=== PATIENT | male | born 1990 | race Two or more races ===

== ENCOUNTER 2017-09-10 22:04 | Emergency (ER) | payer OTHER ==
[2017-09-10 22:14] VITALS: BMI 30.5
[2017-09-10] MEDS ORDERED: TETANUS AND DIPHTHERIA TOXOID 0.5 ML DISP.SYRIN IM ONE (23:18)
--- NOTE | 2017-09-10 23:18 | PDOC ---
History of Present Illness - General History Source: Patient <Carter Del Valle - Last Filed: 09/10/17 23:18> - General History Source: Patient Exam Limitations: No Limitations - History of Present Illness Initial Comments: 09/10/17 23:24 The patient is a 26 year old male, with no significant past medical history who presents to the emergency department with 2 scratches to R side of neck. 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 Patient is requesting tetanus shot. Patient denies any other injuries or trauma. <FelipeShauna - Last Filed: 09/10/17 23:25> - General Chief Complaint: Injury Stated Complaint: INJURY Time Seen by Provider: 09/10/17 23:09 Past History - Surgical History Abdominal Surgery: No Appendectomy: No Cardiac Surgery: No Cholecystectomy: No Gastric Stapling: No GI Surgery: No Lung Surgery: No Neurologic Surgery: No Orthopedic Surgery: No - Suicide/Smoking/Psychosocial Hx Smoking History: Never smoked Have you smoked in the past 12 months: No Hx Alcohol Use: No Drug/Substance Use Hx: No Substance Use Type: None <Carter Del Valle - Last Filed: 09/10/17 23:18> <Shauna Wang - Last Filed: 09/10/17 23:25> - Past Medical History Allergies/Adverse Reactions: Allergies Allergy/AdvReac Type Severity Reaction Status Date / Time No Known Allergies Allergy Verified 09/10/17 22:11 Home Medications: Ambulatory Orders Meloxicam [Mobic] 15 mg PO DAILY #14 tablet 09/05/15 Naproxen [Naprosyn -] 500 mg PO BID PRN #14 tablet 10/25/15 Review of Systems - Review of Systems Able to Perform ROS?: Yes Comments:: 09/10/17 23:24 CONSTITUTIONAL: Absent: fever, no chills, no fatigue EYES: Absent: visual changes ENT: Absent: ear pain, no sore throat CARDIOVASCULAR: Absent: chest pain, no palpitations RESPIRATORY: Absent: cough, no SOB GI: Absent: abdominal pain, no nausea, no vomiting, no constipation, no diarrhea GENITOURINARY: Absent: dysuria, no frequency, no hematuria MUSCULOSKELETAL: Absent: back pain, no arthralgia, no myalgia SKIN: + Scratch to R side of neck Absent: rash <Shauna Wang - Last Filed: 09/10/17 23:25> *Physical Exam - Vital Signs Last Vital Signs Temp Pulse Resp BP Pulse Ox 98.7 F 85 18 126/63 98 09/10/17 22:11 09/10/17 22:11 09/10/17 22:11 09/10/17 22:11 09/10/17 22:11 <Carter Del Valle - Last Filed: 09/10/17 23:18> - Vital Signs Last Vital Signs Temp Pulse Resp BP Pulse Ox 98.7 F 85 18 126/63 98 09/10/17 22:11 09/10/17 22:11 09/10/17 22:11 09/10/17 22:11 09/10/17 22:11 - Physical Exam Comments: 09/10/17 23:25 GENERAL: Well-appearing, well-nourished. No apparent distress. HEENT: Normocephalic, atraumatic. PERRL, EOM intact. CARDIOVASCULAR: Normal S1, S2. Regular rate and rhythm. PULMONARY: Clear to auscultation bilaterally. ABDOMEN: Soft, non-distended, non-tender. EXTREMITIES: Normal ROM in all four extremities. No gross deformities. SKIN: +2 superficial abrasions to R side of neck. Warm, dry. No rash NEUROLOGICAL: No focal neurological deficits. <Shauna Wang - Last Filed: 09/10/17 23:25> Medical Decision Making - Medical Decision Making 09/10/17 23:19 Dr. Del Valle: The scribe's documentation has been prepared under my direction and personally reviewed by me in its entirery. I confirm that the note above accurately reflects all work, treatment, procedures, and medical decision making performed by me. <Carter Del Valle - Last Filed: 09/10/17 23:18> *DC/Admit/Observation/Transfer - Discharge Dispostion Admit: No <Carter Del Valle - Last Filed: 09/10/17 23:18> - Attestations Scribe Attestion: 09/10/17 23:25 Documentation prepared by Shauna Wang, acting as biomedical instrument technician for Carter Del Valle MD <Shauna Wang - Last Filed: 09/10/17 23:25> Diagnosis at time of Disposition: Abrasion - Discharge Dispostion Disposition: HOME - Patient Instructions Printed Discharge Instructions: DI for Abrasion Additional Instructions: Keep area clean and dry. Wash with soap and water.
[2017-09-10 23:52] VITALS: BP 115/74; PULSE 73; TEMP 98.3
== END 2017-09-10 23:45 | disposition home or self-care (01) ==
LOC: JER 22:04
PROC: 3E0234Z Introduction of Serum, Toxoid and Vaccine into Muscle, Percutaneous Approach (ICD-10-PCS; principal; 2017-09-10)
DX: S10.91XA Abrasion of unspecified part of neck, initial encounter (principal); X58.XXXA Exposure to other specified factors, initial encounter; Y93.89 Activity, other specified; Y92.89 Other specified places as the place of occurrence of the external cause; Y99.0 Civilian activity done for income or pay
CPT/HCPCS: 99281-25

== ENCOUNTER 2017-11-25 20:12 | Emergency (ER) | payer OTHER ==
--- NOTE | 2017-11-25 20:24 | PDOC ---
Rapid Medical Evaluation Time Seen by Provider: 11/25/17 20:22 Medical Evaluation: Allergies Allergy/AdvReac Type Severity Reaction Status Date / Time No Known Allergies Allergy Verified 11/25/17 20:22 11/25/17 20:23 Pt presents to the ED: turned his head to the right and struck the wall Pt on brief exam: small hematoma to rt upper cheek and rt forehead, mild contusion to right knee, ambulatory Pt ordered for: none Pt to proceed to the ED Discharge Disposition - Diagnosis Contusion - Referrals - Patient Instructions - Post Discharge Activity
[2017-11-25 20:28] VITALS: BP 108/73; PULSE 103; TEMP 98.1; BMI 30.8
[2017-11-25] MEDS ORDERED: ACETAMINOPHEN 500 MG TABLET (FP) PO ONE (21:31)
--- NOTE | 2017-11-25 21:31 | PDOC ---
History of Present Illness - General Chief Complaint: Injury Stated Complaint: INJURY Time Seen by Provider: 11/25/17 20:22 History Source: Patient - History of Present Illness Initial Comments: 11/25/17 21:45 27-year-old male with no medical history presents to the emergency department complaining of a soreness to his right cheek and right knee. 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 Patient denies headache, dizziness, lightheadedness, neck pain, jaw pain, back pains, chest pain, abdominal pains, extremity numbness or tingling sensation. Occurred: reports: just prior to arrival Past History - Past Medical History Allergies/Adverse Reactions: Allergies Allergy/AdvReac Type Severity Reaction Status Date / Time No Known Allergies Allergy Verified 11/25/17 20:22 Home Medications: Ambulatory Orders NK [No Known Home Medication] 11/25/17 - Surgical History Abdominal Surgery: No Appendectomy: No Cardiac Surgery: No Cholecystectomy: No Gastric Stapling: No GI Surgery: No Lung Surgery: No Neurologic Surgery: No Orthopedic Surgery: No - Suicide/Smoking/Psychosocial Hx Smoking History: Never smoked Have you smoked in the past 12 months: No Hx Alcohol Use: No Drug/Substance Use Hx: No Substance Use Type: None Trauma Specific PMHX - Complaint Specific PMHX Arthritis: No Back Injury: No (history of low back pain herniated discs, unknown injury) Neck Injury: No Hx Sacro Iliac Joint Dysfunction: No Review of Systems - Review of Systems Able to Perform ROS?: Yes Comments:: 11/25/17 21:41 CONSTITUTIONAL: Absent: fever, chills, diaphoresis, generalized weakness, malaise, loss of appetite HEENT: Right maxillar ; slight pain Absent: rhinorrhea, nasal congestion, throat pain, throat swelling, difficulty swallowing, mouth swelling, ear pain, eye pain, visual Changes CARDIOVASCULAR: Absent: chest pain, loss of consciousness, palpitations, irregular heart rate, peripheral edema RESPIRATORY: Absent: cough, shortness of breath, dyspnea with exertion, orthopnea, wheezing, stridor, hemoptysis GASTROINTESTINAL: Absent: abdominal pain, abdominal distension, nausea, vomiting, diarrhea, constipation, melena, hematochezia GENITOURINARY: Absent: dysuria, frequency, urgency, hesitancy, hematuria, flank pain, genital pain MUSCULOSKELETAL: +Right knee pain Absent: myalgia, arthralgia, joint swelling SKIN: Absent: rash, itching, pallor HEMATOLOGIC/IMMUNOLOGIC: Absent: easy bleeding, easy bruising, lymphadenopathy, frequent infections ENDOCRINE: Absent: unexplained weight gain, unexplained weight loss, heat intolerance, cold intolerance NEUROLOGIC: Absent: headache, focal weakness or paresthesias, dizziness, unsteady gait, seizure, mental status changes, bladder or bowel incontinence Is the patient limited Welsh proficient: No *Physical Exam - Vital Signs Last Vital Signs Temp Pulse Resp BP Pulse Ox 98.1 F 103 H 18 108/73 96 11/25/17 20:23 11/25/17 20:23 11/25/17 20:23 11/25/17 20:23 11/25/17 20:23 - Physical Exam Comments: 11/25/17 21:41 GENERAL: Well developed, well nourished. Awake and alert. No acute distress. HEENT: Patient able to open his mouth wide without any difficulties. Normocephalic, atraumatic. PERRLA, EOMI. No conjunctival pallor. Sclera are non- icteric. Moist mucous membranes. Oropharynx is clear. NECK: Supple. Full ROM. No JVD. Carotid pulses 2+ and symmetric, without bruits. No thyromegaly. No lymphadenopathy. CARDIOVASCULAR: Regular rate and rhythm. No murmurs, rubs, or gallops. Distal pulses are 2+ and symmetric. PULMONARY: No evidence of respiratory distress. Lungs clear to auscultation bilaterally. No wheezing, rales or rhonchi. ABDOMINAL: Soft. Non-tender. Non-distended. No rebound or guarding. No organomegaly. Normoactive bowel sounds. MUSCULOSKELETAL +right knee F.R.O.M> superficial abrasion to ant klnee /2cm neg valrus/valgus/ant/posterior drawer neg swelling neg obv deformities RIght ankle 2+dp pulse Neg pain on palp Right hip F.R.O.M. neg pain on palp Normal range of motion at all joints. No bony deformities or tenderness. No CVA tenderness. EXTREMITIES: No cyanosis. No clubbing. No edema. No calf tenderness. SKIN: Warm and dry. Normal capillary refill. No rashes. No jaundice. NEUROLOGICAL: Alert, awake, appropriate. Cranial nerves 2-12 intact. No deficits to light touch and temperature in face, upper extremities and lower extremities. No motor deficits in the in face, upper extremities and lower extremities. Normoreflexic in the upper and lower extremities. Normal speech. Toes are down- going bilaterally. Gait is normal without ataxia. *DC/Admit/Observation/Transfer Diagnosis at time of Disposition: Contusion Qualifiers: Encounter type: initial encounter Contusion area: knee Laterality: right Qualified Code(s): S80.01XA - Contusion of right knee, initial encounter - Discharge Dispostion Disposition: HOME Condition at time of disposition: Stable Admit: No - Referrals Referrals: Chau Valero MD [Staff Physician] - - Patient Instructions Printed Discharge Instructions: DI for Contusion Additional Instructions: Ice; 20 mins on alternating with 20 mins off for 48 hours while awake. \Must ice your right cheek and right knee for the next 48 hours Rest Elevate Follow up with your orthopedic surgeon or the one listed on the discharge form. Return to the ER for severe/persistent/worsening symptoms, extremity numbness/ tingling sensation. - Post Discharge Activity Forms/Work/School Notes: Back to Work
[2017-11-25] MEDS ORDERED: ACETAMINOPHEN 500 MG TABLET (FP) ONE (21:33)
== END 2017-11-25 21:34 | disposition home or self-care (01) ==
LOC: JERFT 20:12
DX: S80.01XA Contusion of right knee, initial encounter (principal); S00.83XA Contusion of other part of head, initial encounter; W01.198A Fall on same level from slipping, tripping and stumbling with subsequent striking against other object, initial encounter; Y93.F9 Activity, other caregiving; Y92.119 Unspecified place in children's home and orphanage as the place of occurrence of the external cause; Y99.0 Civilian activity done for income or pay
CPT/HCPCS: 99281-25

== ENCOUNTER 2018-08-04 14:54 | Emergency (ER) | payer OTHER ==
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
[2018-08-04 15:07] VITALS: BP 118/75; PULSE 71; TEMP 99.2; BMI 30.8
[2018-08-04] MEDS ORDERED: IBUPROFEN 600 MG TABLET (FP) PO ONE ×2 (15:38→15:43)
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
== END 2018-08-04 15:49 | disposition home or self-care (01) ==
LOC: JER 14:54
DX: S13.4XXA Sprain of ligaments of cervical spine, initial encounter (principal); V43.52XA Car driver injured in collision with other type car in traffic accident, initial encounter; Y93.89 Activity, other specified; Y92.410 Unspecified street and highway as the place of occurrence of the external cause
CPT/HCPCS: 99281-25

== ENCOUNTER 2019-06-15 08:19 | Emergency (ER) | payer OTHER ==
[2019-06-15 08:34] VITALS: BP 110/70; PULSE 70; TEMP 98.2; BMI 30.5
--- NOTE | 2019-06-15 08:49 | PDOC ---
History of Present Illness - General Chief Complaint: Injury Stated Complaint: LT FOOT PAIN Time Seen by Provider: 06/15/19 08:40 History Source: Patient Exam Limitations: No Limitations (L foot pain X 1 month, pain started after playing basketball) Past History - Travel Traveled outside of the country in the last 30 days: No Close contact w/someone who was outside of country & ill: No - Past Medical History Allergies/Adverse Reactions: Allergies Allergy/AdvReac Type Severity Reaction Status Date / Time No Known Allergies Allergy Verified 08/04/18 15:04 Home Medications: Ambulatory Orders Ibuprofen 800 mg PO ACDIN 7 Days #21 tablet 06/15/19 COPD: No - Surgical History Abdominal Surgery: No Appendectomy: No Cardiac Surgery: No Cholecystectomy: No Gastric Stapling: No GI Surgery: No Lung Surgery: No Neurologic Surgery: No Orthopedic Surgery: No - Immunization History Immunization Up to Date: No - Suicide/Smoking/Psychosocial Hx Smoking History: Never smoked Have you smoked in the past 12 months: No Information on smoking cessation initiated: No Hx Alcohol Use: No Drug/Substance Use Hx: No Substance Use Type: None Review of Systems - Review of Systems Able to Perform ROS?: Yes Is the patient limited Czech proficient: No Constitutional: No: Chills, Fever Musculoskeletal: Yes: Joint Pain (left foot pain). No: Gout, Joint Swelling, Muscle Pain, Muscle Weakness, Joint Stiffness *Physical Exam - Vital Signs Last Vital Signs Temp Pulse Resp BP Pulse Ox 98.2 F 70 18 110/70 97 06/15/19 08:32 06/15/19 08:32 06/15/19 08:32 06/15/19 08:32 06/15/19 08:32 - Physical Exam General Appearance: Yes: Nourished Respiratory/Chest: positive: Lungs Clear, Normal Breath Sounds Cardiovascular: positive: Regular Rhythm, Regular Rate, S1, S2 Musculoskeletal: positive: Normal Inspection Extremity: positive: Normal Capillary Refill, Normal Inspection, Normal Range of Motion, Tender (L foot: + tenderness noted in mid foot, distal pulse intact) ED Treatment Course - RADIOLOGY Radiology Studies Ordered: Category Date Time Status FOOT-LEFT [RAD] Stat Radiology 06/15/19 08:42 Ordered Medical Decision Making - Medical Decision Making 06/15/19 08:48 28y/o M with L foot pain X 1 month pain occured while playing basketball denies fever, chills, h/o gout or direct trauma exam + tenderness in mid foot otherwise normal exam with gait xray podiatry f/u 06/15/19 08:57 xray neg for acute fx or dislocation motrin recommended podiatry f/u as outpt *DC/Admit/Observation/Transfer Diagnosis at time of Disposition: Foot pain, left - Discharge Dispostion Disposition: HOME Condition at time of disposition: Stable - Prescriptions Prescriptions: Ibuprofen 800 mg PO ACDIN 7 Days #21 tablet - Referrals Referrals: Nate Rodriguez MD [Primary Care Provider] - Justin Pardo MD [Staff Physician] - - Patient Instructions Printed Discharge Instructions: DI for Foot Pain Additional Instructions: Your foot xray show NO fracture or dislocation please take motrin for pain follow up with podiatry clinic if pain persist Return to the ER If worsening symptoms occurs - Post Discharge Activity
== END 2019-06-15 09:12 | disposition home or self-care (01) ==
LOC: JERFT 08:19
DX: M79.672 Pain in left foot (principal); X58.XXXA Exposure to other specified factors, initial encounter; Y93.67 Activity, basketball; Y92.310 Basketball court as the place of occurrence of the external cause; Y99.8 Other external cause status
CPT/HCPCS: 73630-TC-LT; 99281-25